=== PATIENT | male | born 1985 | race Two or more races ===

== ENCOUNTER 2017-11-21 11:12 | Emergency (ER) | payer OTHER, MEDICAID | END 2017-11-21 14:00 | disposition home or self-care (01) | LOC: FTE 11:12 | DX: S89.92XA Unspecified injury of left lower leg, initial encounter (principal); F17.210 Nicotine dependence, cigarettes, uncomplicated; X58.XXXA Exposure to other specified factors, initial encounter; Y92.320 Baseball field as the place of occurrence of the external cause | CPT/HCPCS: 73562; 99283-25 ==